=== PATIENT | female | born 1985 | race Caucasian/White ===

== ENCOUNTER → 2019-08-06 | Outpatient (CLI) | payer OTHER ==
[~2019-08-06] VITALS: Ht 167.6 cm; Wt 106.1 kg
== END | disposition home or self-care (01) ==
LOC: ECT 10:47
DX: F33.2 Major depressive disorder, recurrent severe without psychotic features (principal); F34.1 Dysthymic disorder; G43.909 Migraine, unspecified, not intractable, without status migrainosus; N39.0 Urinary tract infection, site not specified; J45.909 Unspecified asthma, uncomplicated; K58.9 Irritable bowel syndrome, unspecified; Z88.8 Allergy status to other drugs, medicaments and biological substances; Z79.899 Other long term (current) drug therapy

== ENCOUNTER 2019-09-03 08:55 | Outpatient (RCR) | payer OTHER ==
[~2019-09-03] VITALS: Ht 167.6 cm; Wt 106.1 kg
[2019-09-03] MEDS ORDERED: Succinylcholine 20mg/ml 10ml vial ONE ×2 (08:56)
[2019-09-03] MEDS ORDERED: NS 500ML ONE ×2 (08:56)
[2019-09-03] MEDS ORDERED: Ketorolac 30mg Inj ONE ×2 (08:56)
[2019-09-03] MEDS ORDERED: Methohexital Sodium Syr 100mg/10ml IVP ONE ×2 (08:56)
[2019-09-03] MEDS ORDERED: Midazolam 2mg/2ml Inj ONE ×2 (08:56)
[2019-09-03] MEDS ORDERED: SUMAtriptan 6mg/0.5ml Inj SUBQ ONE ×2 (08:56)
[2019-09-03 09:17] VITALS: BP 138/90
[2019-09-03 09:32] VITALS: BP 155/57
[2019-09-03 09:37] VITALS: BP 137/87
[2019-09-03 09:42] VITALS: BP 136/76
[2019-09-03 09:47] VITALS: BP 128/41
[2019-09-07] MEDS ORDERED: Midazolam 2mg/2ml Inj ONE (06:00)
[2019-09-07] MEDS ORDERED: NS 500ML ONE (06:00)
[2019-09-07] MEDS ORDERED: Ketorolac 30mg Inj ONE (06:00)
[2019-09-07] MEDS ORDERED: Succinylcholine 20mg/ml 10ml vial ONE (06:00)
[2019-09-07] MEDS ORDERED: SUMAtriptan 6mg/0.5ml Inj SUBQ ONE (06:00)
[2019-09-07] MEDS ORDERED: Methohexital Sodium Syr 100mg/10ml IVP ONE (06:00)
[2019-09-07 09:38] VITALS: BP 157/83
[2019-09-07 09:55] VITALS: BP 146/116
[2019-09-07 10:00] VITALS: BP 145/101
[2019-09-07 10:05] VITALS: BP 146/77
[2019-09-07 10:10] VITALS: BP 141/88
[2019-09-12] MEDS ORDERED: Methohexital Sodium Syr 100mg/10ml IVP ONE (06:00)
[2019-09-12] MEDS ORDERED: Ketorolac 30mg Inj ONE (06:00)
[2019-09-12] MEDS ORDERED: Midazolam 2mg/2ml Inj ONE (06:00)
[2019-09-12] MEDS ORDERED: NS 500ML ONE (06:00)
[2019-09-12] MEDS ORDERED: Succinylcholine 20mg/ml 10ml vial ONE (06:00)
[2019-09-12] MEDS ORDERED: SUMAtriptan 6mg/0.5ml Inj SUBQ ONE (06:00)
[2019-09-12 09:35] VITALS: BP 140/93
[2019-09-12 09:46] VITALS: BP 158/118
[2019-09-12 09:51] VITALS: BP 97/65
[2019-09-12 09:56] VITALS: BP 129/89
[2019-09-12 10:01] VITALS: BP 143/90
[2019-09-17] MEDS ORDERED: Ketorolac 30mg Inj ONE (06:00)
[2019-09-17] MEDS ORDERED: NS 500ML ONE (06:00)
[2019-09-17] MEDS ORDERED: Methohexital Sodium Syr 100mg/10ml IVP ONE (06:00)
[2019-09-17] MEDS ORDERED: SUMAtriptan 6mg/0.5ml Inj SUBQ ONE (06:00)
[2019-09-17] MEDS ORDERED: Succinylcholine 20mg/ml 10ml vial ONE (06:00)
[2019-09-17] MEDS ORDERED: Midazolam 2mg/2ml Inj ONE (06:00)
[2019-09-17 11:15] VITALS: BP 151/91
[2019-09-17 11:27] VITALS: BP 147/97
[2019-09-17 11:32] VITALS: BP 141/86
[2019-09-17 11:37] VITALS: BP 150/84
[2019-09-17 11:42] VITALS: BP 156/92
[2019-09-24] MEDS ORDERED: Ketorolac 60mg Inj IM ONE (09:00)
[2019-09-24] MEDS ORDERED: Succinylcholine 20mg/ml 10ml vial ONE (09:00)
[2019-09-24] MEDS ORDERED: Methohexital Sodium Syr 100mg/10ml IVP ONE (09:00)
[2019-09-24] MEDS ORDERED: Midazolam 2mg/2ml Inj ONE (09:00)
[2019-09-24] MEDS ORDERED: SUMAtriptan 6mg/0.5ml Inj SUBQ ONE (09:00)
[2019-09-24] MEDS ORDERED: NS 500ML ONE (09:00)
[2019-09-24 09:33] VITALS: BP 135/79
[2019-09-24 09:48] VITALS: BP 156/90
[2019-09-24 09:53] VITALS: BP 159/83
[2019-09-24 09:58] VITALS: BP 159/94
[2019-09-24 10:03] VITALS: BP 143/84
== END 2019-09-29 | disposition home or self-care (01) ==
LOC: ECT 08:55
DX: F33.2 Major depressive disorder, recurrent severe without psychotic features (principal)
CPT/HCPCS: 90870; J0330; J1885; J2250; J3030; J7040

== ENCOUNTER 2019-10-03 05:54 | Outpatient (RCR) | payer OTHER ==
[~2019-10-03] VITALS: Ht 167.6 cm; Wt 106.1 kg
[2019-10-03] MEDS ORDERED: Methohexital Sodium Syr 100mg/10ml IVP ONE (06:00)
[2019-10-03] MEDS ORDERED: Midazolam 2mg/2ml Inj ONE (06:00)
[2019-10-03] MEDS ORDERED: SUMAtriptan 6mg/0.5ml Inj SUBQ ONE (06:00)
[2019-10-03] MEDS ORDERED: Ketorolac 30mg Inj ONE (06:00)
[2019-10-03] MEDS ORDERED: Succinylcholine 20mg/ml 10ml vial ONE (06:00)
[2019-10-03] MEDS ORDERED: NS 500ML ONE (06:00)
[2019-10-03 10:03] VITALS: BP 146/88
[2019-10-03 10:17] VITALS: BP 156/82
[2019-10-03 10:22] VITALS: BP 133/76
[2019-10-03 10:27] VITALS: BP 119/74
[2019-10-03 10:32] VITALS: BP 121/72
[2019-10-17] MEDS ORDERED: Midazolam 2mg/2ml Inj ONE (06:00)
[2019-10-17] MEDS ORDERED: Succinylcholine 20mg/ml 10ml vial ONE (06:00)
[2019-10-17] MEDS ORDERED: Methohexital Sodium Syr 100mg/10ml IVP ONE (06:00)
[2019-10-17] MEDS ORDERED: NS 500ML ONE (06:00)
[2019-10-17] MEDS ORDERED: SUMAtriptan 6mg/0.5ml Inj SUBQ ONE (06:00)
[2019-10-17] MEDS ORDERED: Ketorolac 30mg Inj ONE (06:00)
[2019-10-17 09:46] VITALS: BP 139/86
[2019-10-17 10:05] VITALS: BP 139/80
[2019-10-17 10:10] VITALS: BP 140/74
[2019-10-17 10:15] VITALS: BP 132/69
[2019-10-17 10:20] VITALS: BP 126/53
== END 2019-10-30 | disposition home or self-care (01) ==
LOC: ECT 05:54
DX: F33.2 Major depressive disorder, recurrent severe without psychotic features (principal)
CPT/HCPCS: 90870; J0330; J1885; J2250; J3030; J7040

== ENCOUNTER 2019-10-31 08:20 | Outpatient (RCR) | payer OTHER ==
[~2019-10-31] VITALS: Ht 167.6 cm; Wt 106.1 kg
[2019-10-31] MEDS ORDERED: SUMAtriptan 6mg/0.5ml Inj SUBQ ONE ×2 (08:21)
[2019-10-31] MEDS ORDERED: Ketorolac 30mg Inj ONE (08:21)
[2019-10-31] MEDS ORDERED: Succinylcholine 20mg/ml 10ml vial ONE ×2 (08:21)
[2019-10-31] MEDS ORDERED: NS 500ML ONE ×2 (08:21)
[2019-10-31] MEDS ORDERED: Midazolam 2mg/2ml Inj ONE ×2 (08:21)
[2019-10-31] MEDS ORDERED: Methohexital Sodium Syr 100mg/10ml IVP ONE ×2 (08:21)
[2019-10-31] MEDS ORDERED: Ketorolac 60mg Inj IM ONE (08:21)
[2019-10-31 10:18] VITALS: BP 142/105
[2019-10-31 10:35] VITALS: BP 160/48
[2019-10-31 10:40] VITALS: BP 142/83
[2019-10-31 10:45] VITALS: BP 141/55
[2019-10-31 10:50] VITALS: BP 138/84
[2019-11-09 09:11] VITALS: BP 149/85
[2019-11-09 09:30] VITALS: BP 120/60
[2019-11-09 09:35] VITALS: BP 126/62
[2019-11-09 09:40] VITALS: BP 133/55
[2019-11-09 09:45] VITALS: BP 122/63
== END 2019-11-29 | disposition home or self-care (01) ==
LOC: ECT 08:20
DX: F33.2 Major depressive disorder, recurrent severe without psychotic features (principal)
CPT/HCPCS: 90870; J0330; J1885; J2250; J3030; J7040